=== PATIENT | female | born 1970 | race Caucasian/White ===

== ENCOUNTER → 2023-05-03 | Outpatient (REF) | LOC: M LAB 15:02 | PROVIDERS: ATTEND Nurse Practitioner Adult Health | DX: Z00.00 Encounter for general adult medical examination without abnormal findings (principal) ==

== ENCOUNTER → 2023-08-09 | Outpatient (REF) | LOC: M EMP 11:33 | PROVIDERS: ATTEND Family Medicine | DX: Z11.52 Encounter for screening for COVID-19 (principal) ==

== ENCOUNTER → 2023-08-09 | Outpatient (REF) | LOC: M EMP 12:22 | PROVIDERS: ATTEND Family Medicine | DX: Z11.52 Encounter for screening for COVID-19 (principal) ==

== ENCOUNTER 2023-12-11 09:08 | Outpatient (CLI) | payer BC ==
[~2023-12-11] VITALS: Ht 166.4 cm; Wt 95.9 kg
[2023-12-11 09:20] VITALS: BP 135/79; O2SAT 100
[2023-12-11] MEDS ORDERED: methylPREDNISolone 125MG 2ML VIAL IV PRN (09:30)
[2023-12-11] MEDS ORDERED: SODIUM CHLORIDE 0.9% INJ 10 ML SYR IV PRN (09:30)
[2023-12-11] MEDS ORDERED: diphenhydrAMINE 50MG/ML VIAL IV PRN (09:30)
[2023-12-11 09:58] LABS: HEMATOCRIT 42.7 % (36.0-47.0); HEMOGLOBIN 14.5 g/dl (12.0-15.5); MEAN CORPUSCULAR HEMOGLOBIN 30.9 pg (27.0-33.0); MEAN CORPUSCULAR VOLUME 90.9 fl (80.0-96.0); PLATELET COUNT, AUTOMATED 263 10^3/uL (150-450); WHITE BLOOD COUNT 7.3 10^3/uL (4.0-10.0)
[2023-12-11] MEDS: USTEKINUMAB 520 MG in NS 146 ML IV ONE (10:13)
[2023-12-11] MEDS: SODIUM CHLORIDE 0.9% INJ 10 ML SYR IV SCH (10:13)
[2023-12-11 10:29] LABS: ALBUMIN 3.3 G/DL (3.2-5.2); ALKALINE PHOSPHATASE 118 U/L (46-116); ALT/SGPT 19 U/L (7.0-40); AST/SGOT 15 U/L (<34); BILIRUBIN,TOTAL 0.6 MG/DL (0.3-1.2); BLOOD UREA NITROGEN 7 MG/DL (9-23); CALCIUM LEVEL 8.9 MG/DL (8.5-10.1); CARBON DIOXIDE LEVEL 24 MMOL/L (20-31); CHLORIDE LEVEL 109 MMOL/L (98-107); CREATININE FOR GFR 0.63 MG/DL (0.55-1.30); GLOMERULAR FILTRATION RATE > 60.0 (>51); GLUCOSE, FASTING 93 MG/DL (60-100); IRON (FE) 71 UG/DL (50-170); POTASSIUM SERUM 3.4 MMOL/L (3.5-5.1); SODIUM LEVEL 141 MMOL/L (136-145); TOTAL PROTEIN 6.3 G/DL (5.7-8.2)
[2023-12-11 10:33] LABS: FERRITIN 75.5 NG/ML (7.3-270.7); THYROXINE (T4) 9.8 UG/DL (4.5-10.9)
[2023-12-11 10:34] LABS: THYROID STIMULATING HORMONE 2.313 uIU/ML (0.55-4.78)
== END 2023-12-11 12:31 ==
LOC: M INFU 09:08
PROVIDERS: ATTEND Nurse Practitioner Family
DX: K50.00 Crohn's disease of small intestine without complications (principal); Z88.5 Allergy status to narcotic agent; Z88.8 Allergy status to other drugs, medicaments and biological substances
CPT/HCPCS: 80053; 82652; 82728; 83540; 84436; 84443; 85027; 96365; 96366; J3358

== ENCOUNTER 2023-12-19 13:30 | Observation (INO) | payer BC ==
[~2023-12-19] VITALS: Ht 170.2 cm; Wt 93.6 kg
[2023-12-19] MEDS ORDERED: BUDE3CAP (14:10)
[2023-12-19] MEDS ORDERED: DIPH1TAB81 (14:10)
[2023-12-19] MEDS ORDERED: ZOLP6.2526 (14:10)
[2023-12-19] MEDS ORDERED: PHEN30CA21 (14:10)
[2023-12-19] MEDS ORDERED: LORA1TAB23 (14:10)
[2023-12-19] MEDS ORDERED: HYDR-3716 (14:10)
[2023-12-19] MEDS ORDERED: IBUP80TA (14:10)
[2023-12-19] MEDS ORDERED: STEL90IN SC (14:10)
[2023-12-19] MEDS ORDERED: ROPI2TAB46 (14:10)
[2023-12-19] MEDS ORDERED: PROM25TA12 (14:10)
[2023-12-19] MEDS ORDERED: DULO1CAP4 (14:10)
[2023-12-19] MEDS ORDERED: LISI10TA22 (14:10)
[2023-12-19] MEDS: KETOROLAC 30 MG/ML 1ML VIAL IV ONE (18:40)
[2023-12-19] MEDS: ACETAMINOPHEN *IV* 1,000 MG in IV 1 EA IV ONE (18:41)
[2023-12-19] MEDS: LORazepam 2 MG/ML 1ML VIAL IV STA (18:41)
[2023-12-19] MEDS: dexAMETHasone 20MG/5ML VIAL IV ONE (20:04)
[2023-12-19] MEDS: diphenhydrAMINE 50MG/ML VIAL IV ONE (20:04)
[2023-12-19] MEDS: NS 1,000 ML IV ONE (20:04)
[2023-12-19] MEDS: PROMETHAZINE 25MG/ML 1ML VIAL IV ONE (20:04)
[2023-12-19] MEDS: MAG SULF 1GM/100ML (MAG RUN) 1 GM in IV 1 EA IV ONE (20:33)
[2023-12-19] MEDS: VALPROATE SOD INJ 1,000 MG in D5W 50 ML IV ONE (22:43)
[2023-12-20] MEDS: HYDROMORPHONE HCL 0.5 MG/ 0.5 ML SYRINGE IV ONE (00:30)
[2023-12-20 01:08] LABS: BASO % 0.2 % (0.0-1.0); EOS % 0.1 % (0.0-3.0); HEMATOCRIT 42.5 % (36.0-47.0); HEMOGLOBIN 14.4 g/dl (12.0-15.5); LYMPH # 1.2 10^3/uL (1.5-5.0); LYMPH % 13.7 % (24.0-44.0); MEAN CORPUSCULAR HEMOGLOBIN 30.8 pg (27.0-33.0); MEAN CORPUSCULAR HGB CONC 33.9 g/dl (32.0-36.5); MEAN CORPUSCULAR VOLUME 90.8 fl (80.0-96.0); MONO # 0.1 10^3/uL (0.0-0.8); MONO % 0.7 % (2.0-8.0); NEUTROPHILS # 7.7 10^3/uL (1.5-8.5); NEUTROPHILS % 84.9 % (36.0-66.0); PLATELET COUNT, AUTOMATED 276 10^3/uL (150-450); RED BLOOD COUNT 4.68 10^6/uL (4.00-5.40)
[2023-12-20 01:13] LABS: ERYTHROCYTE SEDIMENTATION RATE 21 mm/hr (0-30)
[2023-12-20 01:32] LABS: C REACTIVE PROTEIN QUANTITATIV < 0.40 MG/DL (<1.0)
[2023-12-20 01:33] LABS: BLOOD UREA NITROGEN 8 MG/DL (9-23); CALCIUM LEVEL 8.8 MG/DL (8.5-10.1); CARBON DIOXIDE LEVEL 23 MMOL/L (20-31); CHLORIDE LEVEL 113 MMOL/L (98-107); CREATININE FOR GFR 0.64 MG/DL (0.55-1.30); GLOMERULAR FILTRATION RATE > 60.0 (>51); GLUCOSE, FASTING 127 MG/DL (60-100); POTASSIUM SERUM 3.6 MMOL/L (3.5-5.1); SODIUM LEVEL 145 MMOL/L (136-145)
[2023-12-20] MEDS ORDERED: HYDROMORPHONE HCL 0.5 MG/ 0.5 ML SYRINGE IV PRN (01:55)
[2023-12-20] MEDS ORDERED: MOM 30ML SUSPENSION UDC PO PRN (01:55)
[2023-12-20] MEDS ORDERED: ACETAMINOPHEN TAB 650MG DOSE (2X325MG) PO PRN (01:55)
[2023-12-20] MEDS ORDERED: PROMETHAZINE 25MG/ML 1ML VIAL IV PRN (02:10)
[2023-12-20] MEDS: HALOPERIDOL LACTATE 5MG/ML VIAL IV ONE (02:15)
[2023-12-20] MEDS: SUMAtriptan SUCCINATE 25 MG TAB PO ONE (02:15)
[2023-12-20] MEDS ORDERED: BUDE3CAP PO (02:46)
[2023-12-20] MEDS ORDERED: STEL90IN IV (02:46)
[2023-12-20] MEDS ORDERED: C 50TAB PO (02:46)
[2023-12-20] MEDS ORDERED: ZOLP6.2526 PO (02:46)
[2023-12-20] MEDS ORDERED: MULTTAB20 PO (02:46)
[2023-12-20] MEDS ORDERED: LISI10TA22 PO (02:46)
[2023-12-20] MEDS ORDERED: ROPI2TAB46 PO (02:46)
[2023-12-20] MEDS ORDERED: DIPH1TAB81 PO (02:46)
[2023-12-20] MEDS ORDERED: PROM25TA12 PO (02:46)
[2023-12-20] MEDS ORDERED: DULO20CA27 PO (02:46)
[2023-12-20] MEDS ORDERED: HYDR-4514 PO (02:46)
[2023-12-20] MEDS ORDERED: ATIV1TAB7 PO (02:46)
[2023-12-20] MEDS ORDERED: PHEN30CA21 PO (02:46)
[2023-12-20] MEDS ORDERED: IBUP1TAB7 PO (02:46)
[2023-12-20] MEDS ORDERED: HOME MED LIST COMPLETE! XX SCH (02:50)
[2023-12-20 03:41] VITALS: TEMP 98.2; O2SAT 94
[2023-12-20 03:54] VITALS: BP 135/78; TEMP 97.7; O2SAT 96
[2023-12-20] MEDS: KETOROLAC 30 MG/ML 1ML VIAL IV PRN (05:30)
[2023-12-20] MEDS ORDERED: SODIUM CHLORIDE 0.9% INJ 10 ML SYR IV PRN (05:30)
[2023-12-20 08:02] VITALS: BP 143/78; TEMP 98.6; O2SAT 97
[2023-12-20 08:03] VITALS: BP 143/78; TEMP 98.6; O2SAT 97
[2023-12-20] MEDS: ENOXAPARIN 40MG/0.4ML SYRINGE (J1650 PER 10MG) SC SCH (08:24)
[2023-12-20] MEDS: SODIUM CHLORIDE 0.9% INJ 10 ML SYR IV SCH (08:24)
[2023-12-20] MEDS: ACETAMINOPHEN 500 MG TAB PO PRN (10:59)
[2023-12-20] MEDS ORDERED: ANEXSIA, NORCO 7.5MG/325MG TABLET(HYDROCODONE/APAP) PO PRN (11:35)
[2023-12-20] MEDS ORDERED: LORazepam 1 MG TAB PO PRN (11:35)
[2023-12-20] MEDS ORDERED: PROMETHAZINE 25 MG TAB PO PRN (11:35)
[2023-12-20] MEDS: DULoxetine 20MG CAP (CYMBALTA) PO SCH (11:49)
[2023-12-20] MEDS: ASCORBIC ACID 500 MG TAB PO SCH (11:49)
[2023-12-20 11:55] VITALS: BP 154/85
[2023-12-20] MEDS ORDERED: rOPINIRole 1MG TAB PO SCH (21:00)
== END 2023-12-20 14:30 | disposition home or self-care (01) ==
LOC: M ED 13:30 → M ED INP 13:31 → M MS5PR 12-20 03:40
PROVIDERS: ADMIT Internal Medicine; ATTEND Internal Medicine
DX: G43.919 Migraine, unspecified, intractable, without status migrainosus (principal); H53.9 Unspecified visual disturbance; J45.909 Unspecified asthma, uncomplicated; I10 Essential (primary) hypertension; F41.9 Anxiety disorder, unspecified; K50.90 Crohn's disease, unspecified, without complications; R01.1 Cardiac murmur, unspecified; Z90.710 Acquired absence of both cervix and uterus; Z90.49 Acquired absence of other specified parts of digestive tract; Z98.890 Other specified postprocedural states; Z88.8 Allergy status to other drugs, medicaments and biological substances; Z88.5 Allergy status to narcotic agent; Z79.899 Other long term (current) drug therapy; Z82.3 Family history of stroke; Z80.8 Family history of malignant neoplasm of other organs or systems
CPT/HCPCS: 70450; 70551; 80048; 85025; 85652; 86140; 96365; 96366; 96367; 96375; 96376; 99285; J0131; J1100; J1170; J1200; J1630; J1650; J1885; J2060; J2550; J3475

== ENCOUNTER → 2024-01-12 | Outpatient (REF) ==
[~2024-01-12] MED LIST: ATIV1TAB7 PO; BUDE3CAP; BUDE3CAP PO; C 50TAB PO; DIPH1TAB81; DIPH1TAB81 PO; DULO1CAP4; DULO20CA27 PO; HYDR-3716; HYDR-4514 PO; IBUP1TAB7 PO; IBUP80TA; LISI10TA22; LISI10TA22 PO; LORA1TAB23; MULTTAB20 PO; PHEN30CA21; PHEN30CA21 PO; PROM25TA12; PROM25TA12 PO; ROPI2TAB46; ROPI2TAB46 PO; STEL90IN IV; STEL90IN SC; ZOLP6.2526; ZOLP6.2526 PO
== END ==
LOC: M EMP 15:57
PROVIDERS: ATTEND Family Medicine
DX: Z11.52 Encounter for screening for COVID-19 (principal)

== ENCOUNTER 2024-06-12 13:01 | Outpatient (CLI) | payer BC ==
[~2024-06-12] VITALS: Ht 170.2 cm; Wt 95.5 kg
[~2024-06-12 13:01] MED LIST changes: +ALBUTEROL SULFATE 2.5MG/0.5ML INH NEB SOLN INH PRN; +EPINEPHrine INJ 1 MG/ML 1ML AMP IM PRN; +NS (Normal Saline) 0.9% 1,000 ML IV SCH; +diphenhydrAMINE 50MG/ML VIAL IV PRN; +methylPREDNISolone 125MG 2ML VIAL IV PRN
[2024-06-12 15:15] VITALS: BP 143/80; O2SAT 98
[2024-06-12] MEDS: USTEKINUMAB 520 MG in NS 146 ML IV ONE (15:53)
[2024-06-12] MEDS: SODIUM CHLORIDE 0.9% INJ 10 ML SYR IV SCH (15:58)
[2024-06-12 17:58] VITALS: BP 168/78; O2SAT 100
== END 2024-06-12 18:00 | disposition home or self-care (01) ==
LOC: M INFU 13:01
PROVIDERS: ATTEND Internal Medicine Gastroenterology
DX: K50.90 Crohn's disease, unspecified, without complications (principal); Z88.5 Allergy status to narcotic agent; Z88.8 Allergy status to other drugs, medicaments and biological substances
CPT/HCPCS: 96365; 96366; 96375; J1642; J3358

== ENCOUNTER 2024-08-05 08:35 | Outpatient (CLI) | payer BC ==
[~2024-08-05 08:35] MED LIST changes: -ALBUTEROL SULFATE 2.5MG/0.5ML INH NEB SOLN INH PRN; -EPINEPHrine INJ 1 MG/ML 1ML AMP IM PRN; -NS (Normal Saline) 0.9% 1,000 ML IV SCH; -diphenhydrAMINE 50MG/ML VIAL IV PRN; -methylPREDNISolone 125MG 2ML VIAL IV PRN
[2024-08-05 08:45] VITALS: BP 142/78; O2SAT 100
[2024-08-05] MEDS: SODIUM CHLORIDE 0.9% INJ 10 ML SYR IV SCH (09:03)
[2024-08-05 09:27] LABS: HEMATOCRIT 43.9 % (36.0-47.0); HEMOGLOBIN 14.3 g/dl (12.0-15.5); MEAN CORPUSCULAR HEMOGLOBIN 29.5 pg (27.0-33.0); MEAN CORPUSCULAR HGB CONC 32.6 g/dl (32.0-36.5); MEAN CORPUSCULAR VOLUME 90.5 fl (80.0-96.0); PLATELET COUNT, AUTOMATED 278 10^3/uL (150-450); RED BLOOD COUNT 4.85 10^6/uL (4.00-5.40); WHITE BLOOD COUNT 7.9 10^3/uL (4.0-10.0)
[2024-08-05 09:36] LABS: ERYTHROCYTE SEDIMENTATION RATE 18 mm/hr (0-30)
[2024-08-05 09:56] LABS: ALBUMIN 3.4 G/DL (3.2-5.2); ALKALINE PHOSPHATASE 76 U/L (35-104); ALT/SGPT 19 U/L (7.0-40); AST/SGOT 13 U/L (<34); BILIRUBIN,TOTAL 0.4 MG/DL (0.3-1.2); BLOOD UREA NITROGEN 8 MG/DL (9-23); C REACTIVE PROTEIN QUANTITATIV < 0.50 MG/DL (<1.0); CALCIUM LEVEL 9.1 MG/DL (8.5-10.1); CARBON DIOXIDE LEVEL 24 MMOL/L (20-31); CHLORIDE LEVEL 110 MMOL/L (98-107); CREATININE FOR GFR 0.71 MG/DL (0.55-1.30); GLOMERULAR FILTRATION RATE > 60.0 (>51); GLUCOSE, FASTING 95 MG/DL (60-100); POTASSIUM SERUM 3.4 MMOL/L (3.5-5.1); SODIUM LEVEL 145 MMOL/L (136-145); TOTAL PROTEIN 6.9 G/DL (5.7-8.2)
[2024-08-05 09:57] LABS: IRON (FE) 73 UG/DL (50-170); PERCENT SATURATION 21.5 % (13.2-45.0); TOTAL IRON BINDING CAPACITY 340 UG/DL (250-425)
[2024-08-05 10:00] LABS: FERRITIN 43.2 NG/ML (7.3-270.7); TOTAL 25(OH) VITAMIN D 28.2 NG/ML (20.0-100.0); VITAMIN B12 LEVEL 229 PG/ML (211-911)
[2024-08-05 10:17] LABS: HEPATITIS B SURFACE ANTIGEN NEGATIVE (NEGATIVE)
== END 2024-08-05 09:15 ==
LOC: M INFU 08:35
PROVIDERS: ATTEND Internal Medicine Gastroenterology
DX: Z45.2 Encounter for adjustment and management of vascular access device (principal); K50.00 Crohn's disease of small intestine without complications; K59.1 Functional diarrhea
CPT/HCPCS: 36591; 80053; 82306; 82607; 82728; 82784; 83550; 85027; 85652; 86140; 86231; 86255; 86258; 86364; 86480; 87340; 96523; G0472; J1642

== ENCOUNTER → 2024-09-24 | Outpatient (REF) | payer BC | LOC: M LAB REF 09:50 | PROVIDERS: ATTEND Internal Medicine Gastroenterology | DX: R19.7 Diarrhea, unspecified (principal) ==

== ENCOUNTER → 2024-09-30 | Outpatient (CLI) | payer BC ==
[~2024-09-30] MED LIST changes: +ISOVUE-370 76% 100ML VIAL As Ordered ONE
== END ==
LOC: M RAD 08:44
PROVIDERS: ATTEND Internal Medicine Gastroenterology
DX: K50.00 Crohn's disease of small intestine without complications (principal)

== ENCOUNTER → 2024-12-03 | Outpatient (CLI) | payer BC ==
[~2024-12-03] MED LIST changes: -ISOVUE-370 76% 100ML VIAL As Ordered ONE
== END ==
LOC: M WHC 10:44
PROVIDERS: ATTEND Obstetrics & Gynecology
DX: Z12.31 Encounter for screening mammogram for malignant neoplasm of breast (principal)

== ENCOUNTER → 2024-12-27 | Outpatient (REF) | payer BC | LOC: M LAB REF 09:35 | PROVIDERS: ATTEND Internal Medicine Gastroenterology | DX: M19.90 Unspecified osteoarthritis, unspecified site (principal); K59.1 Functional diarrhea; K50.00 Crohn's disease of small intestine without complications; N82.8 Other female genital tract fistulae ==

== ENCOUNTER 2025-02-05 10:49 | Outpatient (CLI) | payer BC ==
[~2025-02-05] VITALS: Ht 170.2 cm; Wt 97.7 kg
[2025-02-05] MEDS ORDERED: NS (Normal Saline) 0.9% 1,000 ML IV SCH (11:00)
[2025-02-05 11:05] VITALS: BP 160/81; O2SAT 99
[2025-02-05] MEDS: INFLIXIMAB BIOSIMILAR 500 MG in NS 200 ML IV ONE (11:35)
[2025-02-05 11:55] VITALS: BP 123/66; TEMP 98; O2SAT 97
[2025-02-05 12:10] VITALS: BP 126/65; TEMP 99.2; O2SAT 97
[2025-02-05 12:25] VITALS: BP 122/67; TEMP 98.9; O2SAT 99
[2025-02-05 12:40] VITALS: BP 122/64; TEMP 98.6; O2SAT 97
[2025-02-05 13:10] VITALS: BP 124/65; TEMP 98.8; O2SAT 99
[2025-02-05] MEDS: HEPARIN LOCK FLUSH 100 UNITS/ML 3 ML SYRINGE IV PRN (14:22)
[2025-02-05] MEDS: SODIUM CHLORIDE 0.9% INJ 10 ML SYR IV PRN (14:22)
== END 2025-02-05 14:25 ==
LOC: M INFU 10:49
PROVIDERS: ATTEND Internal Medicine Gastroenterology
DX: K50.10 Crohn's disease of large intestine without complications (principal); Z88.5 Allergy status to narcotic agent; Z88.8 Allergy status to other drugs, medicaments and biological substances
CPT/HCPCS: 96413; 96415; J1642; Q5103

== ENCOUNTER 2025-03-31 11:21 | Outpatient (CLI) | payer BC ==
[~2025-03-31] VITALS: Ht 170.2 cm; Wt 99.5 kg
[2025-03-31] MEDS ORDERED: NS (Normal Saline) 0.9% 1,000 ML IV SCH (11:30)
[2025-03-31 11:55] VITALS: BP 140/76; TEMP 97.3; O2SAT 100
[2025-03-31 12:11] LABS: PLATELET COUNT, AUTOMATED 258 10^3/uL (150-450)
[2025-03-31] MEDS: INFLIXIMAB BIOSIMILAR 500 MG in NS 200 ML IV ONE (12:28)
[2025-03-31 12:43] LABS: C REACTIVE PROTEIN QUANTITATIV < 0.50 MG/DL (<1.0)
[2025-03-31 12:44] LABS: ALT/SGPT 24 U/L (7.0-40); AST/SGOT 25 U/L (<34); CALCIUM LEVEL 8.7 MG/DL (8.5-10.1); CARBON DIOXIDE LEVEL 29 MMOL/L (20-31); CHLORIDE LEVEL 106 MMOL/L (98-107); CREATININE FOR GFR 0.68 MG/DL (0.55-1.30); GLOMERULAR FILTRATION RATE > 90.0 (>51); POTASSIUM SERUM 3.4 MMOL/L (3.5-5.1); SODIUM LEVEL 144 MMOL/L (136-145)
[2025-03-31 12:45] VITALS: BP 144/88; TEMP 98; O2SAT 100
[2025-03-31 12:47] LABS: TOTAL 25(OH) VITAMIN D 41.6 NG/ML (20.0-100.0)
[2025-03-31 12:48] LABS: VITAMIN B12 LEVEL 1828 PG/ML (211-911)
[2025-03-31 13:00] VITALS: BP 136/90; TEMP 98; O2SAT 100
[2025-03-31 14:00] VITALS: TEMP 98.7; O2SAT 99
[2025-03-31] MEDS: HEPARIN LOCK FLUSH 100 UNITS/ML 3 ML SYRINGE IV PRN (14:43)
[2025-03-31] MEDS: SODIUM CHLORIDE 0.9% INJ 10 ML SYR IV PRN (14:43)
[2025-03-31 14:50] VITALS: BP 138/89; O2SAT 100
[2025-04-01] MEDS ORDERED: SODIUM CHLORIDE 0.9% INJ 10 ML SYR IV SCH (09:00)
[2025-04-01] MEDS ORDERED: HEPARIN LOCK FLUSH 100 UNITS/ML 3 ML SYRINGE IV SCH (09:00)
== END 2025-03-31 14:50 | disposition home or self-care (01) ==
LOC: M INFU 11:21
PROVIDERS: ATTEND Internal Medicine Gastroenterology
DX: K50.10 Crohn's disease of large intestine without complications (principal); Z88.5 Allergy status to narcotic agent; Z88.8 Allergy status to other drugs, medicaments and biological substances
CPT/HCPCS: 80053; 82306; 82607; 85027; 85652; 86140; 96413; 96415; J1642; Q5103